=== PATIENT | female | born 1965 | race Two or more races ===

== ENCOUNTER → 2016-11-29 | Outpatient (CLI) | payer OTHER ==
--- NOTE | 2016-11-29 17:06 | DX ---
Knee 3 Views Right History: STAT READ NO CALL REQUESTED, VANESA JUNG PAC [id number], RIGHT KNEE, HISTORY OF TIBIA FRAC TURE PER PATIENT Comparison exam: None available. Findings: No fracture or joint effusion is identified. Minimal patellofemoral degenerative changes. M ild deformity of the lateral tibial plateau is compatible with history of prior fracture, healed. Impression: Negative for acute abnormality.
== END ==
LOC: BRMIMAGING 15:43
PROVIDERS: ATTEND Internal Medicine
DX: Z13.828 Encounter for screening for other musculoskeletal disorder (principal)
CPT/HCPCS: 73562-PO